=== PATIENT | female | born 1945 | race Caucasian/White ===

== ENCOUNTER → 2022-09-10 14:15 | Outpatient (CLI) | payer OTHER, SELFPAY ==
--- NOTE | 2022-09-10 | DI.RAD.S_ITS ---
PROCEDURE: XR CHEST 2V INDICATIONS: COPD, acute cough TECHNIQUE: 2 views of the chest were acquired. COMPARISON: None. FINDINGS: Surgical changes and devices: None. Lungs and pleura: Patchy right basilar airspace disease. Hyperexpanded lungs consistent with COPD. Lucent changes in the apices indicative of emphysema. No pleural effusions or pneumothorax. Mediastinum: Mediastinal contours are normal. Heart size is normal. Bones and chest wall: Scoliosis. No suspicious bony abnormalities. Soft tissues appear unremarkable. IMPRESSION: Patchy right basilar airspace disease may represent acute infection. Follow-up to document complete resolution recommended. Dictated by: Oniel Samano M.D. on 09/10/2022 at 14:56 Approved by: Oniel Samano M.D. on 09/10/2022 at 14:57
[2022-09-10 15:19] LABS: Add Manual Diff / Slide Review NO; Basophils Absolute Auto 0 /uL (0-100); Basophils Percent Auto 0.6 % (0-2); Eosinophils Absolute Auto 200 /uL (0-450); Eosinophils Percent Auto 4.2 % (2-4); Hematocrit 36.2 % (36-46); Hemoglobin 12.6 g/dL (12.0-16.0); Lymphocytes Absolute Auto 900 /uL (1100-4500); Lymphocytes Percent Auto 20.6 % (25-40); Mean Corpuscular HGB Conc 34.9 % (30-36); Mean Corpuscular Hemoglobin 30.2 PG (26-34); Mean Corpuscular Volume 86.6 fL (80-100); Monocytes Absolute Auto 300 /uL (0-900); Neutrophils Absolute Auto 3100 /uL (1500-7000); Neutrophils Percent Auto 68.6 % (50-75); Platelet Count 197 X10^3/uL (150-400); Red Blood Cell Count 4.19 X10^6/uL (4.0-5.2); Red Cell Distribution Width 13.4 % (11.6-14.8); White Blood Cell Count 4.5 X10^3/uL (4.5-11.0)
[2022-09-10 15:58] LABS: Alanine Aminotransferase 19 IU/L (<35); Albumin 4.1 g/dL (3.5-5.0); Albumin Globulin Ratio 1.8 (1.0-2.8); Alkaline Phosphatase 76 U/L (38-126); Aspartate Aminotransferase 26 IU/L (14-36); BUN Creatinine Ratio 14.8 (6-22); Bilirubin Total 0.8 mg/dL (0.2-1.3); Blood Urea Nitrogen 13 mg/dL (7-17); Calcium 9.3 mg/dL (8.4-10.2); Carbon Dioxide 28 mmol/L (22-32); Chloride 88 mmol/L (98-107); Estimated Glomerular Filt Rate > 60 mL/min (>60); Globulin 2.3 g/dL (1.7-4.1); Glucose 96 mg/dL (80-110); HEMOLYSIS < 15 (0-50); Sodium 124 mmol/L (137-145); Total Protein 6.4 g/dL (6.3-8.2)
== END ==
PROVIDERS: PCP Registered Nurse; Referring Provider Registered Nurse; Visit Provider Registered Nurse
DX: J44.9 Chronic obstructive pulmonary disease, unspecified (principal); J84.89 Other specified interstitial pulmonary diseases; R05.1 Acute cough; I10 Essential (primary) hypertension
CPT/HCPCS: 36415; 71046; 80053; 85025

== ENCOUNTER → 2023-05-11 12:08 | Outpatient (CLI) | payer MEDICARE, SELFPAY ==
--- NOTE | 2023-05-11 12:17 | DI.RAD.S_ITS ---
PROCEDURE: XR FOOT LT MIN 3V INDICATIONS: RECENT FALL TECHNIQUE: 3 views of the foot were acquired. COMPARISON: None. FINDINGS: Bones: No fractures or dislocations. No suspicious bony lesions. Metatarsus primus varus. Periarticular osteophyte formation at the 1st metatarsophalangeal joint. Soft tissues: No tibiotalar joint effusion. Achilles tendon appears normal. IMPRESSION: 1. 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 2. No acute fracture. No osseous lesion. If symptoms and/or clinical suspicion for pathology persist, further assessment with repeat, or advanced imaging (e.g., CT, MRI, or bone scan) may be helpful for further assessment. Dictated by: Daysi Barrow M.D. on 05/11/2023 at 16:05 Approved by: Daysi Barrow M.D. on 05/11/2023 at 16:06
== END ==
PROVIDERS: PCP Registered Nurse; Referring Provider Family Medicine; Visit Provider Family Medicine
DX: S99.922A Unspecified injury of left foot, initial encounter (principal)
CPT/HCPCS: 73630

== ENCOUNTER 2023-11-09 22:53 | Emergency (ER) | payer MEDICARE, SELFPAY ==
[2023-11-09 22:57] VITALS: BP 222/96; PULSE 73; RESP 16; TEMP 36.1; O2SAT 100; BMI 27.8
--- NOTE | 2023-11-09 23:08 | DI.CT.S_ITS ---
PROCEDURE: CT CERVICAL SPINE WO CON INDICATIONS: GLF, HEAD INJURY TECHNIQUE: Noncontrast 3 mm thick sections acquired from the skull base to the T4 level. Sagittal and coronal reformats were then constructed. For radiation dose reduction, the following was used: automated exposure control, adjustment of mA and/or kV according to patient size. COMPARISON: None. FINDINGS: Image quality: Excellent. Bones: No fractures or dislocations. Loss of disc height and degenerative endplate changes with dorsal disc osteophyte complex formation at C5-6 level is seen causing [id number] central canal stenosis and bilateral neural foraminal narrowing. Visualized superior ribs are intact. Soft tissues: Prevertebral soft tissues are normal in thickness. No paravertebral hematomas. No apical pneumothoraces. IMPRESSION: 1. No displaced fracture or traumatic subluxation. 2. Degenerative disc disease at C5-6 level as above. Dictated by: Kemar Romero M.D. on 11/09/2023 at 23:42 Approved by: Kemar Romero M.D. on 11/09/2023 at 23:43
--- NOTE | 2023-11-09 23:08 | DI.CT.S_ITS ---
PROCEDURE: CT HEAD/BRAIN WO CON INDICATIONS: GLF, HEAD INJURY TECHNIQUE: Noncontrast 4.5 mm thick angled axial sections acquired from the foramen magnum to the vertex, with coronal and sagittal reformats. For radiation dose reduction, the following was used: automated exposure control, adjustment of mA and/or kV according to patient size. COMPARISON: None. FINDINGS: Image quality: Diagnostic. CSF spaces: Basal cisterns are patent. No extra-axial fluid collections. The ventricles are symmetric in size and shape. 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 No intracranial bleeds or masses. There is cerebral volume loss for age, with resultant ventricular and sulcal prominence. There are periventricular and deep white matter chronic small vessel ischemic changes. There is intracranial internal carotid artery atherosclerosis. Skull and face: Large left posterior parietal scalp hematoma and swelling is seen. Calvarium and visualized facial bones appear intact, without suspicious lesions. Sinuses: Visualized sinuses and mastoids are clear. IMPRESSION: 1. No acute intracranial pathology. 2. Age related volume loss and white matter chronic small vessel ischemic changes. 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 3. Left posterior parietal scalp hematoma and swelling. No acute skull fracture. Dictated by: Kemar Romero M.D. on 11/09/2023 at 23:44 Approved by: Kemar Romero M.D. on 11/09/2023 at 23:45
--- NOTE | 2023-11-10 00:14 | ED.FALL ---
HPI - Fall General Chief Complaint: Fall Stated Complaint: fell, hit head Time Seen by Provider: 11/09/23 23:07 Source: patient Mode of arrival: Ambulatory History of Present Illness HPI Narrative: 78-year-old female presents for accidental head injury. Patient was walking up her driveway when her ankle slipped and she landed on her bottom, falling backwards and striking her head. Patient takes aspirin but denies use of other blood thinners. Patient began to develop a large hematoma of the back of her scalp, causing her family concerned, who brought her in for evaluation. Patient reports occipital head pain from her fall, denies any other pain. Related Data Home Medications Medication Instructions Recorded Confirmed aspirin 81 mg tablet,delayed 81 mg PO DAILY 06/15/23 09/16/23 release (Enteric Coated Aspirin) atenolol 25 mg tablet 25 mg PO DAILY 06/15/23 09/16/23 calcium carbonate 600 mg-vitamin 1 tab PO DAILY 06/15/23 09/16/23 D3 20 mcg (800 unit) tablet rosuvastatin 20 mg tablet 20 mg PO ONCE PM 06/15/23 09/16/23 umeclidinium 62.5 mcg-vilanterol 1 ea inhalation DAILY 06/15/23 09/16/23 25 mcg/actuation powdr for inhalation (Anoro Ellipta) cholecalciferol (vitamin D3) 50 50 mcg PO DAILY 07/12/23 09/16/23 mcg (2,000 unit) capsule fexofenadine 180 mg tablet 180 mg PO DAILY 07/12/23 09/16/23 (Aller-Fex) lisinopril 20 mg tablet 20 mg PO DAILY 07/12/23 09/16/23 Previous Rx's Medication Instructions Recorded loratadine 10 mg tablet (Allergy 10 mg PO DAILY #30 tabs 08/02/23 Relief (loratadine)) hydrochlorothiazide 12.5 mg tablet 25 mg (2 x 12.5 mg) PO DAILY #60 10/24/23 tabs Allergies Allergy/AdvReac Type Severity Reaction Status Date / Time Penicillanic Sulfone BL Allergy Verified 09/16/23 09:20 Beta-Lactam Review of Systems Review of Systems Narrative: See HPI Patient History Medical History Numbness COPD (chronic obstructive pulmonary disease) (~2013) Stroke (2017) Migraines (~1974) Cataracts, bilateral (~2020) Kidney stones (~1976) Surgical History Anesthesia History of cataract removal with insertion of prosthetic lens (~2020) History of surgery (~2015) History of tubal ligation (~1977) Family History Mother Cancer Grandfather History of heart disease Grandmother Dementia Grandfather Cancer Grandmother Stroke Social History Smoking Status: Former smoker Smoking Status: Former smoker alcohol intake frequency: 0-2 drinks per day Substance Use Type: does not use Exam Initial Vital Signs Initial Vital Signs: Vital Signs Temperature 97 F L 11/09/23 22:57 Pulse Rate 73 11/09/23 22:57 Respiratory Rate 16 11/09/23 22:57 Blood Pressure 222/96 H 11/09/23 22:57 Pulse Oximetry 100 11/09/23 22:57 Oxygen Delivery Method Room Air 11/09/23 22:57 Const: Awake, alert, frail, no distress MSK: Atraumatic, full range of motion, pulses equal, no reproducible tenderness to palpation Skin: Warm, Dry, intact, occipital hematoma without laceration or abrasion Neuro: AO x3, CN II-XII grossly intact, moves all extremities Course Orders Ordered: ED Orders 11/09/23 23:08 CT cervical spine wo con Stat CT head/brain wo con Stat Vital Signs Vital signs: Vital Signs - 8 hr 11/09/23 22:57 Temperature 97 F L Pulse Rate 73 Respiratory Rate 16 Blood Pressure 222/96 H Pulse Oximetry 100 Oxygen Delivery Method Room Air MDM - Fall Differential Diagnosis Differential diagnosis: Likely syncope, dislocation of shoulder region and fracture of wrist Imaging Data CT - cervical spine: Radiologist's Impression: PROCEDURE: CT CERVICAL SPINE WO CON INDICATIONS: GLF, HEAD INJURY TECHNIQUE: Noncontrast 3 mm thick sections acquired from the skull base to the T4 level. Sagittal and coronal reformats were then constructed. For radiation dose reduction, the following was used: automated exposure control, adjustment of mA and/or kV according to patient size. COMPARISON: None. FINDINGS: Image quality: Excellent. Bones: No fractures or dislocations. Loss of disc height and degenerative endplate changes with dorsal disc osteophyte complex formation at C5-6 level is seen causing [id number] central canal stenosis and bilateral neural foraminal narrowing. Visualized superior ribs are intact. Soft tissues: Prevertebral soft tissues are normal in thickness. No paravertebral hematomas. No apical pneumothoraces. IMPRESSION: 1. No displaced fracture or traumatic subluxation. 2. Degenerative disc disease at C5-6 level as above. Dictated by: Kemar Romero M.D. on 11/09/2023 at 23:42 Approved by: Kemar Romero M.D. on 11/09/2023 at 23:43 CT scan - head: Radiologist's Impression: PROCEDURE: CT HEAD/BRAIN WO CON INDICATIONS: GLF, HEAD INJURY TECHNIQUE: Noncontrast 4.5 mm thick angled axial sections acquired from the foramen magnum to the vertex, with coronal and sagittal reformats. For radiation dose reduction, the following was used: automated exposure control, adjustment of mA and/or kV according to patient size. COMPARISON: None. FINDINGS: Image quality: Diagnostic. CSF spaces: Basal cisterns are patent. No extra-axial fluid collections. The ventricles are symmetric in size and shape. 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 No intracranial bleeds or masses. There is cerebral volume loss for age, with resultant ventricular and sulcal prominence. There are periventricular and deep white matter chronic small vessel ischemic changes. There is intracranial internal carotid artery atherosclerosis. Skull and face: Large left posterior parietal scalp hematoma and swelling is seen. Calvarium and visualized facial bones appear intact, without suspicious lesions. Sinuses: Visualized sinuses and mastoids are clear. IMPRESSION: 1. No acute intracranial pathology. 2. Age related volume loss and white matter chronic small vessel ischemic changes. 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 3. Left posterior parietal scalp hematoma and swelling. No acute skull fracture. Dictated by: Kemar Romero M.D. on 11/09/2023 at 23:44 Approved by: Kemar Romero M.D. on 11/09/2023 at 23:45 [facility] Narrative Medical decision making narrative: Ground level fall with head injury. CT negative for acute traumatic findings. No other injuries on exam Discharge Plan Departure Patient Disposition: Home Clinical Impression: Hematoma of occipital region of scalp Instructions: DI for Hematoma (Bruise) Activity Restrictions/Additional Instructions: Take Tylenol and apply ice as needed for swelling. Prescriptions: No Action Anoro Ellipta 62.5-25 mcg/actuation blister with device 1 ea inhalation DAILY rosuvastatin 20 mg tablet 20 mg PO ONCE PM atenolol 25 mg tablet 25 mg PO DAILY aspirin [Enteric Coated Aspirin] 81 mg tablet,delayed release (DR/EC) 81 mg PO DAILY calcium carbonate-vitamin D3 600 mg-20 mcg (800 unit) tablet 1 tab PO DAILY cholecalciferol (vitamin D3) 50 mcg (2,000 unit) capsule 50 mcg PO DAILY fexofenadine [Aller-Fex] 180 mg tablet 180 mg PO DAILY lisinopril 20 mg tablet 20 mg PO DAILY loratadine [Allergy Relief (loratadine)] 10 mg tablet 10 mg PO DAILY Qty: 30 2RF hydrochlorothiazide 12.5 mg tablet 25 mg PO DAILY Qty: 60 5RF Referrals: Oniel Cornell MD [Primary Care Provider] - Stand Alone Forms: Patient Portal/API
[2023-11-10 00:27] VITALS: BP 208/100; PULSE 70; RESP 16; O2SAT 96
== END 2023-11-10 00:28 | disposition home or self-care (01) ==
PROVIDERS: Emergency Provider Emergency Medicine; PCP Family Medicine
DX: S00.03XA Contusion of scalp, initial encounter (principal); W18.30XA Fall on same level, unspecified, initial encounter
CPT/HCPCS: 70450; 72125; 99281; 99284

== ENCOUNTER → 2023-12-28 08:46 | Outpatient (CLI) | payer MEDICARE, SELFPAY ==
--- NOTE | 2023-12-28 08:48 | DI.US.S_ITS ---
PROCEDURE: US CAROTID DOPPLER BI INDICATIONS: H/o CVA w/R carotid endarterectomy TECHNIQUE: Color and pulse Doppler interrogation was performed of both carotid systems, with image documentation and velocity measurements. COMPARISON: None. FINDINGS: Stenosis calculations are based on SRU (Society of Radiologists in Ultrasound) criteria. Right side: Brachial blood pressure: 142/72 mm Hg. Common carotid artery peak systolic velocity: 76 cm/sec. Internal carotid artery peak systolic velocity: 76 cm/sec. Internal carotid artery end diastolic velocity: 21 cm/sec. External carotid artery peak systolic velocity: 59 cm/sec. ICA/CCA peak systolic ratio: 1.0 . Childers scale imaging description: Mild atherosclerotic plaques Percent internal carotid artery stenosis: Less than 50% stenosis . Vertebral artery: Flow direction is antegrade. Left side: Brachial blood pressure: 137/64 mm Hg. Common carotid artery peak systolic velocity: 69 cm/sec. Internal carotid artery peak systolic velocity: 96 cm/sec. Internal carotid artery end diastolic velocity: 27 cm/sec. External carotid artery peak systolic velocity: 96 cm/sec. ICA/CCA peak systolic ratio: 1.4 . Childers scale imaging description: Mild atherosclerotic plaques Percent internal carotid artery stenosis: Less than 50% stenosis . Vertebral artery: Flow direction is antegrade. IMPRESSION: Less than 50% stenosis of the bilateral internal carotid arteries. Dictated by: Viktor Jeffries M.D. on 12/28/2023 at 14:58 Approved by: Viktor Jeffries M.D. on 12/28/2023 at 14:59
== END ==
LOC: US 08:46
PROVIDERS: PCP Family Medicine; Referring Provider Family Medicine; Visit Provider Family Medicine
DX: I65.23 Occlusion and stenosis of bilateral carotid arteries (principal); I10 Essential (primary) hypertension; E78.2 Mixed hyperlipidemia; Z86.73 Personal history of transient ischemic attack (TIA), and cerebral infarction without residual deficits
CPT/HCPCS: 93880

== ENCOUNTER → 2024-01-20 09:06 | Outpatient (CLI) | payer MEDICARE, SELFPAY ==
--- NOTE | 2024-01-20 09:08 | DI.ECHO.S_ITS ---
[facility] : : [address] : : [place] : : [id number] : : Phone: [phone] Echocardiogram Report + + :Name: ABIGAIL SHAH Study Date: 01/20/2024 Height: 65 in : :Hospital ReadingLocation: Weight: 164 lb : : Gender: Female BSA: 1.8 m2 : :: 1945 Age: 78 yrs BP: 170/78 mmHg: :Reason For Study: Hypertension : :Ordering Physician: NGUYEN, : :NAWAF Munroe Performed By: Dee Baca : :Referring: NAWAF CEDILLO : + + Interpretation Summary The ejection fraction is estimated to be 60-65%. There is moderate mitral annular calcification. The right ventricular systolic pressure is estimated to be at least 32 mmHg based on an estimated right atrial pressure of 3 mm Hg. Procedure: A two-dimensional transthoracic echocardiogram with color flow and Doppler was performed. The study quality was technically adequate. There is no prior echocardiogram noted for this patient. The heart rate ranged between 67-69 bpm during the study. Left Ventricle: The left ventricle is normal in size and wall thickness. The ejection fraction is estimated to be 60-65%. Left ventricular wall motion is normal. Diastolic parameters suggest a relaxation abnormality of the left ventricle, consistent with probable normal filling pressures. Right Ventricle: The right ventricle grossly appears normal in size with probable normal systolic function. Atria: The left atrium is mildly dilated. Right atrial size is normal. The interatrial septum grossly appears intact with no obvious evidence for an atrial septal defect. Mitral Valve: The mitral valve leaflets appear mildly thickened, but open well. The mitral valve leaflets are moderately calcified. There is moderate mitral annular calcification. There is no mitral regurgitation noted. Aortic Valve: The aortic valve is trileaflet. The aortic valve opens well. No aortic regurgitation is present. Tricuspid Valve: The tricuspid valve leaflets are thin and pliable. There is a trace or physiologic amount of tricuspid regurgitation. The right ventricular systolic pressure is estimated to be at least 32 mmHg based on an estimated right atrial pressure of 3 mm Hg. Pulmonic Valve: The pulmonic valve is not well visualized. Great Vessels: The aortic root is normal size. The ascending aorta is normal in size. The aortic arch is normal in size. The IVC is of normal diameter and collapses greater than 50% with a sniff. This suggests a low right atrial pressure of 3 mm Hg. Pericardium/ Pleura There is no pericardial effusion. There is no pleural effusion. MMode/2D Measurements & Calculations LVIDd: 4.8 cm LVOT diam: 2.0 cm LVIDs: 3.0 cm Ao root diam: 3.2 cm FS: 36.7 % asc Aorta Diam: 3.1 cm EPSS: 0.53 cm Ao Arch Diam (Prox Trans): 2.3 cm IVSd: 1.0 cm LVPWd: 0.91 cm LV dunlap. diameter/BSA (cm/m^2): 2.6 LV sys. diameter/BSA (cm/m^2): 1.7 LA A2 area: 24.2 cm2 RA long axis: 4.7 cm LA A4 area: 24.8 cm2 RA area: 14.3 cm2 LA length (vol): 5.9 cm RA vol: 36.8 ml LA vol: 85.9 ml RA : 20.2 ml/m2 LA vol index: 47.2 ml/m2 IVC diam: 1.4 cm RVD1 (basal): 2.5 cm TAPSE: 2.5 cm Doppler Measurements & Calculations Ao V2 max: 139.6 cm/sec LVOT Max Lexx: 87.3 cm/sec Ao V2 mean: 92.5 cm/sec LV V1 max P.0 mmHg Ao max P.8 mmHg LV V1 VTI: 17.7 cm Ao mean P.0 mmHg ARTEM(I,D): 1.8 cm2 Ao V2 VTI: 32.0 cm ARTEM(V,D): 2.0 cm2 sev ratio: 0.55 ARTEM indexed to BSA (cm^2/m^2): 1.00 MV E max lexx: 90.7 cm/sec TR max lexx: 268.9 cm/sec MV A max lexx: 126.8 cm/sec TR max P.9 mmHg MV E/A: 0.71 PA V2 max: 61.0 cm/sec Med Peak E' Lexx: 4.9 cm/sec PA V2 mean: 39.2 cm/sec E/E' med: 18.4 PA mean P.74 mmHg Lat Peak E' Lexx: 4.6 cm/sec PA pr(Accel): 13.9 mmHg E/E' lat: 19.9 E/e' average: 19.1 MV dec time: 0.29 sec SV(LVOT): 58.0 ml Reading Physician:03:10 PM
== END ==
PROVIDERS: PCP Family Medicine; Referring Provider Family Medicine; Visit Provider Family Medicine
DX: I34.81 Nonrheumatic mitral (valve) annulus calcification (principal); I10 Essential (primary) hypertension; R60.0 Localized edema; Z86.73 Personal history of transient ischemic attack (TIA), and cerebral infarction without residual deficits
CPT/HCPCS: 93306

== ENCOUNTER → 2024-04-19 13:39 | Outpatient (CLI) | payer MEDICARE, SELFPAY | PROVIDERS: PCP Family Medicine; Visit Provider Family Medicine | DX: R35.0 Frequency of micturition (principal) | CPT/HCPCS: 87086 ==

== ENCOUNTER → 2024-05-04 11:42 | Outpatient (CLI) | payer MEDICARE, SELFPAY ==
--- NOTE | 2024-05-04 11:43 | DI.RAD.S_ITS ---
PROCEDURE: XR CHEST 2V INDICATIONS: Cough for 3 weeks TECHNIQUE: 2 views of the chest were acquired. COMPARISON: [facility], CR, XR CHEST 2V, 09/10/2022, 14:18. FINDINGS: Surgical changes and devices: None. Lungs and pleura: Lung volumes are mildly elevated suggesting bronchitis. Mild airspace disease seen in both posterior lower lobes . bilateral pleural effusions appreciated. Mediastinum: Mediastinal contours are normal. Heart size is normal. Bones and chest wall: Transverse nondisplaced fracture of the surgical neck of the left humerus is age indeterminate. There are moderate compression fracture of the upper midthoracic spine with moderate degenerative disc disease throughout the thoracic spine IMPRESSION: Findings suggestive of bronchitis likely chronic. Small bilateral pleural effusions. Mild infiltrates in both posterior lower lobes could indicate aspiration. Transverse mildly displaced fracture through the surgical neck left humerus appreciated. Age indeterminate. If this is previously unknown, suggest shoulder films Dictated by: Kingsley Cisneros M.D. on 05/07/2024 at 7:08 Approved by: Kingsley Cisneros M.D. on 05/07/2024 at 7:12
== END ==
LOC: RAD 11:42
PROVIDERS: PCP Family Medicine; Referring Provider Family Medicine; Visit Provider Family Medicine
DX: J90 Pleural effusion, not elsewhere classified (principal); R05.9 Cough, unspecified; R91.8 Other nonspecific abnormal finding of lung field; S42.212A Unspecified displaced fracture of surgical neck of left humerus, initial encounter for closed fracture; M48.54XA Collapsed vertebra, not elsewhere classified, thoracic region, initial encounter for fracture; M51.34 Other intervertebral disc degeneration, thoracic region
CPT/HCPCS: 71046

== ENCOUNTER → 2024-05-24 13:10 | Outpatient (CLI) | payer MEDICARE, SELFPAY | PROVIDERS: PCP Family Medicine; Referring Provider Family Medicine; Visit Provider Family Medicine | DX: J44.9 Chronic obstructive pulmonary disease, unspecified (principal); R05.3 Chronic cough; J40 Bronchitis, not specified as acute or chronic; Z87.891 Personal history of nicotine dependence; R94.2 Abnormal results of pulmonary function studies; R05.1 Acute cough | CPT/HCPCS: 94060; 94726; 94729 ==

== ENCOUNTER 2025-01-20 17:28 | Emergency (ER) | payer MEDICARE, SELFPAY ==
[2025-01-20 17:52] VITALS: BP 139/64; PULSE 90; RESP 16; TEMP 37; O2SAT 96; BMI 26.1
--- NOTE | 2025-01-20 17:59 | DI.RAD.S_ITS ---
PROCEDURE: XR RIBS LT MIN 3V W CXR1V INDICATIONS: glf TECHNIQUE: 2 views of the ribs were acquired, along with a single view chest. COMPARISON: None. FINDINGS: Surgical changes and devices: None. Bones and chest wall: No fractures or dislocations. No suspicious bony lesions. Overlying soft tissues appear unremarkable. Serpentine curvature of the thoracic spine. Lungs and pleura: Hyperinflated lung volumes with mild interstitial markings. No concerning consolidation No pleural effusions or pneumothorax. Lungs appear clear. Mediastinum: Mediastinal contours appear normal. Heart size is normal. IMPRESSION: No displaced rib fracture or pneumothorax. Dictated by: Orlando Samano M.D. on 01/20/2025 at 17:25 Approved by: Orlando Samano M.D. on 01/20/2025 at 17:28
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
--- NOTE | 2025-01-20 19:02 | DI.CT.S_ITS ---
PROCEDURE: CT ANGIO CHEST PE PROTOCOL INDICATIONS: L chest pain, recent trauma TECHNIQUE: After the administration of intravenous contrast, 2 mm thick sections acquired from the pulmonary apices to the posterior costophrenic angles. 3-dimensional maximum intensity projection (MIP) coronal and sagittal reformats were then acquired through the thorax. For radiation dose reduction, the following was used: automated exposure control, adjustment of mA and/or kV according to patient size. COMPARISON: None. FINDINGS: Image quality: Diagnostic. Pulmonary arteries: Pulmonary arteries are normal in size, and demonstrate no intraluminal filling defects to suggest central pulmonary embolism. Lower Neck: No enlarged lymph nodes. Thyroid: No thyroid nodules which require sonographic follow up, per consensus guidelines. Axillae: No enlarged lymph nodes. Chest Wall: Unremarkable. Bones: Unremarkable. Lungs and Pleura: No pneumothorax or pleural effusions. There is a cavitary mass in the right upper lobe medially measuring 3.8 x 2.3 cm. This extends to the pleura medially with probable mediastinal invasion. There is also peribronchovascular mass more inferiorly in the right upper lobe measuring 2.2 cm in diameter. There is associated narrowing of the right upper lobar bronchus. There is also a large nodule in the left lower lobe laterally measuring 2 x 1.6 cm. Heart: Heart size is normal. No pericardial effusion. Thoracic Vessels: No aortic aneurysm. Mediastinum and Liyah: Multiple enlarged superior mediastinal nodes bilaterally measuring up to 1.7 cm short axis. Larger right paratracheal osman mass measuring 5.1 x 4 cm. Multiple other anterior mediastinal nodes more inferiorly measuring up to 2.3 cm short axis. Right hilar node measures 2.54 cm. Esophagus: No wall thickening. No hiatal hernia. Upper Abdomen: Visualized upper abdomen solid organs and bowel loops appear normal. IMPRESSION: 1. No signs of pulmonary emboli. No acute traumatic lesion seen in the chest. 2. 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 Dictated by: Jonathan Farmer M.D. on 01/20/2025 at 20:04 Approved by: Jonathan Farmer M.D. on 01/20/2025 at 20:58
--- NOTE | 2025-01-20 19:02 | DI.CT.S_ITS ---
PROCEDURE: CT ABDOMEN PELVIS W CON INDICATIONS: LUQ pain, 3 hours after injury TECHNIQUE: After the administration of intravenous contrast, axial sections acquired from the lung bases to the pubic symphysis. Coronal and sagittal reformats were performed. For radiation dose reduction, the following was used: automated exposure control, adjustment of mA and/or kV according to patient size. COMPARISON: None. FINDINGS: Image quality: Diagnostic. Lower Chest: Please correlate with CT angiogram of chest performed on the same day. ABDOMEN: Liver: No solid mass. Gallbladder: No gallbladder wall thickening or radiopaque gallstones. Biliary ducts: No biliary dilation. Pancreas: No ductal dilation. Spleen: Mild splenomegaly, no discrete splenic lesion. No evidence of splenic laceration. Adrenal Glands: No adrenal nodules. Kidneys and Ureters: No obstructing stones or hydronephrosis. No solid mass. No complex renal cystic lesion which requires follow up. Stomach and Bowel: There is no bowel obstruction. No abnormal bowel wall thickening or mesenteric fat stranding. Peritoneum: No abnormal intraperitoneal fluid. No free air. Ventral Wall: No significant ventral hernia. Abdominal Nodes: No retroperitoneal or mesenteric adenopathy by size criteria. Vessels: Aorta and inferior vena cava are normal in size. PELVIS: Pelvic Organs: Unremarkable. Bladder: No bladder wall thickening, accounting for underdistention. Pelvic Nodes: No enlarged lymph nodes. Miscellaneous: No inguinal hernias are seen. Bones: No aggressive osseous abnormality. IMPRESSION: 1. No evidence of acute trauma in abdomen or pelvis. No gross displaced left lower rib fractures. 2. Borderline splenomegaly, no evidence of splenic laceration. 3. No bowel obstruction or abnormal bowel wall thickening. No peritoneal free fluid or free air. 4. Please also seen CT angiogram of chest report. Dictated by: Kemar Romero M.D. on 01/20/2025 at 20:08 Approved by: Kemar Romero M.D. on 01/20/2025 at 20:11
[2025-01-20 19:11] VITALS: RESP 14; O2SAT 95
[2025-01-20 19:22] LABS: Add Manual Diff / Slide Review NO; Hematocrit 32.5 % (36-46); Hemoglobin 11.4 g/dL (12.0-16.0); Lymphocytes Absolute Auto 600 /uL (1100-4500); Mean Corpuscular HGB Conc 35.1 % (30-36); Mean Corpuscular Hemoglobin 31.6 PG (26-34); Mean Corpuscular Volume 90.1 fL (80-100); Platelet Count 129 X10^3/uL (150-400)
[2025-01-20] MEDS: ALBUTEROL HFA PREPACK 1 BOX MISC (19:28)
[2025-01-20 19:31] LABS: Alanine Aminotransferase 14 IU/L (<35); Albumin 4.0 g/dL (3.5-5.0); Albumin Globulin Ratio 1.8 (1.0-2.8); Alkaline Phosphatase 61 U/L (38-126); Blood Urea Nitrogen 11 mg/dL (7-17); Calcium 9.3 mg/dL (8.4-10.2); Carbon Dioxide 30 mmol/L (22-32); Chloride 89 mmol/L (98-107); Estimated Glomerular Filt Rate > 60 mL/min (>60); Globulin 2.2 g/dL (1.7-4.1); Glucose 98 mg/dL (70-99); HEMOLYSIS < 15 (0-50); Potassium 3.7 mmol/L (3.4-5.1); Sodium 126 mmol/L (137-145); Total Protein 6.2 g/dL (6.3-8.2)
[2025-01-20 19:39] LABS: Lipase 97 U/L (23-300)
[2025-01-20 20:16] VITALS: BP 184/81; PULSE 84; RESP 18; O2SAT 98
[2025-01-20 20:25] LABS: Appearance Urine UA CLEAR; Bilirubin Urine UA NEGATIVE (NEGATIVE); Color Urine UA YELLOW; Glucose Urine UA NEGATIVE (Negative); Ketones Urine UA NEGATIVE (NEGATIVE); Leukocyte Esterase Urine UA 1+ (NEGATIVE); Nitrite Urine UA NEGATIVE (Negative); Occult Blood Urine UA 2+ (Negative); Protein Urine UA NEGATIVE (Negative); Specific Gravity Urine UA <=1.005 (1.000-1.035); Urobilinogen Urine UA 0.2 E.U./dL (0.2)
[2025-01-20 20:26] LABS: pH Urine UA 7.0 (4.5-8.0)
[2025-01-20 20:45] LABS: Culture Indicated Urine Specimen Cultured
== END 2025-01-20 21:44 | disposition home or self-care (01) ==
PROVIDERS: Emergency Provider Emergency Medicine; PCP Family Medicine
DX: S20.212A Contusion of left front wall of thorax, initial encounter (principal); J98.4 Other disorders of lung; R91.1 Solitary pulmonary nodule; I69.354 Hemiplegia and hemiparesis following cerebral infarction affecting left non-dominant side; V00.141A Fall from scooter (nonmotorized), initial encounter; Z87.891 Personal history of nicotine dependence
CPT/HCPCS: 36415; 71101; 71275; 74177; 80053; 81001; 83690; 85025; 87086; 99283; 99284; Q9967